=== PATIENT | male | born 1975 | race African-American/Black ===

== ENCOUNTER 2023-04-07 21:22 | Emergency (ER) | payer MEDICAID ==
[~2023-04-07] VITALS: Ht 177.8 cm; Wt 136.4 kg
[2023-04-07 21:29] VITALS: TEMP 98.7
[2023-04-07] MEDS ORDERED: COLCHICINE 0.6 MG TABLET PO ONE (23:00)
[2023-04-07] MEDS ORDERED: HYDROCODONE/ACETAMINOPHEN 5-325 MG TABLET PO ONE (23:00)
[2023-04-07] MEDS ORDERED: KETOROLAC TROMETHAMINE 30 MG/ML VIAL IM ONE (23:00)
[2023-04-08] MEDS ORDERED: COLCHICINE 0.6 MG TABLET PO ONE (00:15)
[2023-04-08 00:30] VITALS: BP 154/99; PULSE 84; RESP 17
== END 2023-04-08 01:34 | disposition home or self-care (01) ==
LOC: EMS 21:24
DX: M10.9 Gout, unspecified (principal); M79.672 Pain in left foot; M79.671 Pain in right foot
CPT/HCPCS: 99284; 96372; J1885